=== PATIENT | male | born 1955 | race Caucasian/White ===

== ENCOUNTER 2024-09-28 15:09 | Inpatient (IN) | payer OTHER ==
[2024-09-28 17:26] LABS: BASO % 0.5 % (0-2.0); EOS % 1.3 % (0-4.5); HEMOGLOBIN 12.5 GM/dL (11.7-16.9); LYMPH % 13.6 % (8-40); MCH 27.8 pg (25.7-33.7); MCHC 32.9 g/dl (32.0-35.9); MEAN CELL VOLUME 84.5 fl (80-96); MEAN PLT VOLUME 6.9 fl (7.5-11.1); NEUT % 79.6 % (42.8-82.8); PLATELET COUNT 327 10^3/uL (134-434); WHITE BLOOD COUNT 13.8 K/mm3 (4.0-10.0)
[2024-09-28 17:34] LABS: INR 1.16 (0.83-1.09)
[2024-09-28 17:36] LABS: POTASSIUM 4.7 mmol/L (3.5-5.1)
[2024-09-28 17:37] LABS: ACTIVATED PTT 36.3 SECONDS (25.2-36.5)
[2024-09-28 17:38] LABS: CALCIUM 9.2 mg/dL (8.5-10.1)
[2024-09-28 17:39] LABS: ALBUMIN 3.2 g/dl (3.4-5.0); BLOOD UREA NITROGEN 13.7 mg/dL (7-18)
[2024-09-28 17:42] LABS: CREATININE 0.7 mg/dL (0.55-1.3)
[2024-09-28 17:43] LABS: BILIRUBIN,TOTAL 0.6 mg/dL (0.2-1)
[2024-09-28 17:44] LABS: TOT PROT 7.6 g/dl (6.4-8.2)
[2024-09-28] MEDS ORDERED: morphine SULFATE 4 MG/ML VIAL ONE (18:03)
[2024-09-28] MEDS: morphine SULFATE 4 MG/ML VIAL IVPUSH ONE (18:09)
[2024-09-28 19:02] LABS: ERYTHROCYTE SEDIMENTATION RATE 89 mm/hr (0-20)
[2024-09-28] MEDS ORDERED: DOCUSATE SODIUM 100 MG CAPSULE (FP) PO PRN (23:42)
[2024-09-28] MEDS ORDERED: ACETAMINOPHEN 1000 MG/100 ML BAG IVPB PRN (23:46)
[2024-09-29 01:22] VITALS: BMI 27.1
[2024-09-29] MEDS: INSULIN ASPART SLIDING SCALE (NOVOLOG) 1 VIAL SQ SCH (06:29)
[2024-09-29 08:38] LABS: BASO % 0.3 % (0-2.0); EOS % 2.2 % (0-4.5); HEMATOCRIT 36.2 % (35.4-49); HEMOGLOBIN 12.2 GM/dL (11.7-16.9); LYMPH % 17.3 % (8-40); MCH 28.2 pg (25.7-33.7); MCHC 33.8 g/dl (32.0-35.9); MEAN CELL VOLUME 83.4 fl (80-96); MEAN PLT VOLUME 6.7 fl (7.5-11.1); NEUT % 74.2 % (42.8-82.8); PLATELET COUNT 328 10^3/uL (134-434); RBC 4.34 M/mm3 (4.00-5.60); RDW 14.4 % (11.9-15.9); WHITE BLOOD COUNT 11.6 K/mm3 (4.0-10.0)
[2024-09-29 08:46] LABS: BLOOD UREA NITROGEN 12.4 mg/dL (7-18); CALCIUM 9.6 mg/dL (8.5-10.1)
[2024-09-29 08:47] LABS: MAGNESIUM 1.9 mg/dL (1.8-2.4)
[2024-09-29 08:50] LABS: CREATININE 0.6 mg/dL (0.55-1.3); PHOSPHOROUS 3.2 mg/dL (2.5-4.9)
[2024-09-29] MEDS: ATORVASTATIN CA 40 MG TABLET (FP) PO ONE (12:01)
[2024-09-29] MEDS: HEPARIN SOD,PORK IN 0.45% NACL 25,000 UNITS/500 ML INFUS.BAG IVPB SCH (13:01)
[2024-09-29] MEDS: HEPARIN NA (PORCINE) 5,000 UNITS/ML 1ML VIAL IVPUSH PRN (22:55)
[2024-09-30] MEDS: HEPARIN NA (PORCINE) 5,000 UNITS/ML 1ML VIAL IVPUSH PRN (06:17)
[2024-09-30] MEDS: traMADol HCL 50 MG TABLET PO PRN (15:55)
[2024-09-30] MEDS: LIDOCAINE HCL 5% TOP OINTMENT 50 GM TUBE TP ONE (21:48)
[2024-09-30] MEDS: ATORVASTATIN CA 40 MG TABLET (FP) PO SCH (21:49)
[2024-10-01 10:31] LABS: HEMATOCRIT 35.3 % (35.4-49); HEMOGLOBIN 11.7 GM/dL (11.7-16.9); MCH 28.1 pg (25.7-33.7); MCHC 33.1 g/dl (32.0-35.9); MEAN CELL VOLUME 84.9 fl (80-96); MEAN PLT VOLUME 7.3 fl (7.5-11.1); PLATELET COUNT 296 10^3/uL (134-434); RBC 4.16 M/mm3 (4.00-5.60); RDW 14.3 % (11.9-15.9); WHITE BLOOD COUNT 8.5 K/mm3 (4.0-10.0)
[2024-10-01] MEDS ORDERED: MIDAZOLAM HCL 2 MG/2 ML SINGLE DOSE VIAL ONE ×2 (16:16→18:16)
[2024-10-01] MEDS ORDERED: HEPARIN NA (PORCINE) 5,000 UNITS/ML 1ML VIAL ONE ×2 (16:16→17:03)
[2024-10-01] MEDS ORDERED: DEXMEDETOMIDINE HCL 200 MCG/2 ML IVPB ONE (17:55)
[2024-10-01] MEDS: ceFAZolin SODIUM 1 GM VIAL IVPB ONE (18:05)
[2024-10-01] MEDS ORDERED: METOCLOPRAMIDE HCL INJECTION 10 MG/2 ML VIAL ONE (18:07)
[2024-10-01] MEDS ORDERED: ONDANSETRON 4 MG/2 ML VIAL ONE (18:07)
[2024-10-01] MEDS: LIDOCAINE HCL 1%, 10 MG/ML (20ML VIAL) NR ONE (18:19)
[2024-10-01] MEDS ORDERED: PROTAMINE SULFATE 50 MG/5 ML VIAL ONE (18:39)
[2024-10-01] MEDS ORDERED: DOCUSATE SODIUM 100 MG CAPSULE (FP) PO PRN (18:55)
[2024-10-01] MEDS: LACTATED RINGERS SOLUTION 1,000 ML IV SCH (19:40)
[2024-10-01] MEDS: ENOXAPARIN NA (PORCINE) 100 MG/1 ML DISP.SYRIN SQ SCH (19:54)
[2024-10-01] MEDS: ATORVASTATIN CA 40 MG TABLET (FP) PO SCH (22:13)
[2024-10-01] MEDS: INSULIN ASPART SLIDING SCALE (NOVOLOG) 1 VIAL SQ SCH (22:13)
[2024-10-02] MEDS: traMADol HCL 50 MG TABLET PO PRN (04:29)
[2024-10-02 07:53] LABS: HEMATOCRIT 34.4 % (35.4-49); HEMOGLOBIN 11.6 GM/dL (11.7-16.9); MCH 28.3 pg (25.7-33.7); MCHC 33.8 g/dl (32.0-35.9); MEAN CELL VOLUME 83.9 fl (80-96); MEAN PLT VOLUME 6.9 fl (7.5-11.1); PLATELET COUNT 291 10^3/uL (134-434); RDW 14.5 % (11.9-15.9); WHITE BLOOD COUNT 9.9 K/mm3 (4.0-10.0)
[2024-10-02 08:10] LABS: CALCIUM 9.2 mg/dL (8.5-10.1)
[2024-10-02 08:11] LABS: BLOOD UREA NITROGEN 23.3 mg/dL (7-18)
[2024-10-02 08:14] LABS: CREATININE 0.9 mg/dL (0.55-1.3)
[2024-10-02 08:15] LABS: BILIRUBIN,TOTAL 0.6 mg/dL (0.2-1); TOT PROT 6.9 g/dl (6.4-8.2)
[2024-10-02] MEDS ORDERED: NICOTINE 21 MG/24 HOURS TOPICAL PATCH TD SCH (10:00)
[2024-10-02] MEDS: NICOTINE 21 MG/24 HOURS TOPICAL PATCH TD SCH (10:03)
[2024-10-02] MEDS: HYDROmorphone HCl 2 MG/ML VIAL IVPUSH ONE (13:16)
[2024-10-02 13:39] VITALS: BP 126/72; PULSE 86; RESP 20; TEMP 97.9
[2024-10-02] MEDS ORDERED: APIXABAN 5 MG TABLET PO SCH (22:00)
== END 2024-10-02 16:53 | disposition home or self-care (01) | DRG 254 ==
LOC: JER 15:09 → JERBED 21:01 → J7W 09-29 00:47 → OBSVTOIN 09-30 08:47
PROVIDERS: ADMIT Internal Medicine; ATTEND Family Medicine
PROC: B41DZZZ Fluoroscopy of Aorta and Bilateral Lower Extremity Arteries (ICD-10-PCS; 2024-10-01)
PROC: B40GYZZ Plain Radiography of Left Lower Extremity Arteries using Other Contrast (ICD-10-PCS; 2024-10-01)
PROC: 047D3DZ Dilation of Left Common Iliac Artery with Intraluminal Device, Percutaneous Approach (ICD-10-PCS; principal; 2024-10-01 17:30)
DX: E11.51 Type 2 diabetes mellitus with diabetic peripheral angiopathy without gangrene (principal); I10 Essential (primary) hypertension; E78.5 Hyperlipidemia, unspecified; E05.90 Thyrotoxicosis, unspecified without thyrotoxic crisis or storm; R91.8 Other nonspecific abnormal finding of lung field; J44.9 Chronic obstructive pulmonary disease, unspecified; R59.0 Localized enlarged lymph nodes; F17.210 Nicotine dependence, cigarettes, uncomplicated
CPT/HCPCS: 36415; 71250-TC; 73660-TC-LT-FY; 75635-TC; 76000-TC-FY; 80048; 80053; 80061; 82962; 83036; 83735; 84100; 84439; 84443; 85025; 85027; 85610; 85651; 85730; 86140; 86850; 86900; 86901; 93005; 93010; 93306-TC; 94760; 97116-GP; 97162-GP; 99285-25; C1760; C1874; G0378; J1644; Q9967

== ENCOUNTER 2025-04-25 22:11 | Inpatient (IN) | payer OTHER ==
[2025-04-25] MEDS ORDERED: ACETAMINOPHEN INJECTION 100 ML ONE (22:26)
[2025-04-25] MEDS: ACETAMINOPHEN 1000 MG/100 ML BAG IVPB ONE (23:01)
[2025-04-25] MEDS: LACTATED RINGERS SOLUTION 1000 ML INFUS.BAG IV ONE (23:02)
[2025-04-25 23:10] LABS: ABSOLUTE IMMATURE GRANULOCYTES 0.13 x10^3/uL (0.0-0.031); BASOPHILS # 0.06 x10^3/uL (0.01-0.08); EOSINOPHIL % 0.5 % (0.8-7.0); EOSINOPHILS # 0.09 x10^3/uL (0.04-0.54); HEMATOCRIT 33.5 % (40.1-51.0); HEMOGLOBIN 10.7 g/dL (13.7-17.5); MCHC 31.9 g/dl (32.3-36.5); MEAN CELL VOLUME 87.7 fl (79.0-92.2); MEAN PLT VOLUME 8.7 fl (9.4-12.4); MONOCYTE # 0.99 x10^3/uL (0.30-0.82); MONOCYTE % 5.3 % (5.3-12.2); PLATELET COUNT 251 x10^3/uL (163-337); RDW 13.6 % (12.2-16.6)
[2025-04-25 23:19] LABS: INR 1.26 (0.83-1.09); PROTHROMBIN TIME (PATIENT) 13.9 SEC (9.7-13.0)
[2025-04-25 23:22] LABS: ACTIVATED PTT 29.1 SECONDS (25.2-36.5)
[2025-04-25 23:27] LABS: VENOUS BASE EXCESS 0.6 mmol/L (-2-2); VENOUS O2 SATURATION 63.7 % (70-80); VENOUS PCO2 42.7 mmHg (38-52); VENOUS PH 7.397 (7.310-7.410)
[2025-04-25 23:31] LABS: POTASSIUM 3.8 mmol/L (3.5-5.1)
[2025-04-25 23:34] LABS: ALBUMIN 3.1 g/dl (3.4-5.0); BLOOD UREA NITROGEN 20.8 mg/dL (7-18); MAGNESIUM 1.4 mg/dL (1.8-2.4)
[2025-04-25 23:37] LABS: CREATININE 1.2 mg/dL (0.55-1.3)
[2025-04-25 23:39] LABS: BILIRUBIN,TOTAL 0.9 mg/dL (0.2-1); TOT PROT 7.2 g/dl (6.4-8.2)
[2025-04-26] MEDS ORDERED: MAGNESIUM SULFATE IN WATER 2 GM/50 ML IVPB IVPB ONE (00:43)
[2025-04-26] MEDS ORDERED: PIPERACILLIN/TAZOB 4.5 GM 4.5 GM/100 ML BAG IVPB ONE (00:43)
[2025-04-26] MEDS: MAGNESIUM SULFATE IN WATER 2 GM/50 ML IVPB IVPB ONE (01:02)
[2025-04-26] MEDS: PIPERACILLIN/TAZOB 4.5 GM 4.5 GM in DEXTROSE 5%-WATER 100 ML IVPB ONE (01:08)
[2025-04-26] MEDS ORDERED: DEXAMETHASONE SOD PHOSPHATE 10 MG/1 ML VIAL ONE (01:09)
[2025-04-26] MEDS: DEXAMETHASONE SOD PHOSPHATE 10 MG/1 ML VIAL IVPB ONE (01:14)
[2025-04-26] MEDS: VANCOMYCIN HCL 1,500 MG in DEXTROSE 5%-WATER - 500 ML IVPB ONE (01:35)
[2025-04-26] MEDS: VANCOMYCIN HCL IN 5 % DEXTROSE 1,500 MG/300 ML BAG IVPB ONE (02:20)
[2025-04-26 03:08] LABS: PH,URINE 5.5 (5.0-8.0); URINE APPEARANCE CLEAR; URINE BILIRUBIN NEGATIVE (NEGATIVE); URINE COLOR YELLOW; URINE GLUCOSE (UA) NEGATIVE (NEGATIVE); URINE KETONE NEGATIVE (NEGATIVE); URINE LEUK ESTERASE NEGATIVE (NEGATIVE); URINE NITRITE NEGATIVE (NEGATIVE); URINE PROTEIN TRACE (NEGATIVE); URINE UROBILINOGEN 0.2 mg/dL (0.2-1.0)
[2025-04-26] MEDS: DEXTROSE 5%-0.45% SALINE 1,000 ML IV SCH (06:35)
[2025-04-26] MEDS: INSULIN ASPART SLIDING SCALE (NOVOLOG) 1 VIAL SQ SCH (06:40)
[2025-04-26] MEDS: PIPERACILLIN/TAZOB 3.375 GM 3.375 GM in DEXTROSE 5%-WATER - 50 ML IVPB SCH ×2 (09:43→18:49)
[2025-04-26] MEDS: MUPIROCIN 2% TOPICAL OINTMENT FOR DECOLONIZATION NS SCH (09:43)
[2025-04-26] MEDS: NICOTINE 21 MG/24 HOURS TOPICAL PATCH TD SCH (11:33)
[2025-04-26] MEDS: CHLORHEXIDINE GLUCONATE 4% CLEANSER FOR DECOLONIZATION TP SCH (21:18)
[2025-04-27] MEDS: PIPERACILLIN/TAZOB 3.375 GM 3.375 GM in DEXTROSE 5%-WATER - 50 ML IVPB SCH (01:31)
[2025-04-27 06:56] LABS: ABSOLUTE IMMATURE GRANULOCYTES 0.11 x10^3/uL (0.0-0.031); BASOPHILS # 0.03 x10^3/uL (0.01-0.08); EOSINOPHIL % 0.4 % (0.8-7.0); EOSINOPHILS # 0.06 x10^3/uL (0.04-0.54); HEMATOCRIT 31.2 % (40.1-51.0); HEMOGLOBIN 9.9 g/dL (13.7-17.5); MCHC 31.7 g/dl (32.3-36.5); MEAN CELL VOLUME 86.9 fl (79.0-92.2); MONOCYTE # 0.91 x10^3/uL (0.30-0.82); MONOCYTE % 5.4 % (5.3-12.2); PLATELET COUNT 251 x10^3/uL (163-337); RDW 13.3 % (12.2-16.6)
[2025-04-27 07:00] LABS: POTASSIUM 3.9 mmol/L (3.5-5.1)
[2025-04-27 07:09] LABS: BILIRUBIN,TOTAL 0.5 mg/dL (0.2-1)
[2025-04-27 07:10] LABS: TOT PROT 6.7 g/dl (6.4-8.2)
[2025-04-27 07:11] LABS: ALBUMIN 2.7 g/dl (3.4-5.0)
[2025-04-27 07:12] LABS: BLOOD UREA NITROGEN 21.2 mg/dL (7-18); MAGNESIUM 1.8 mg/dL (1.8-2.4); PHOSPHOROUS 2.8 mg/dL (2.5-4.9)
[2025-04-27 07:13] LABS: CALCIUM 9.2 mg/dL (8.5-10.1)
[2025-04-27] MEDS: DEXAMETHASONE SOD PHOSPHATE 4 MG/1 ML VIAL IVPUSH SCH (09:51)
[2025-04-27] MEDS: TAMSULOSIN HCL 0.4 MG CAP PO SCH (09:51)
[2025-04-27] MEDS: ASPIRIN COATED 81 MG TABLET.EC PO SCH (09:51)
[2025-04-27 14:39] VITALS: BMI 30.1
[2025-04-27] MEDS: ATORVASTATIN CA 80 MG TABLET (FP) PO SCH (21:21)
[2025-04-28] MEDS: PIPERACILLIN/TAZOB 3.375 GM 3.375 GM in DEXTROSE 5%-WATER - 50 ML IVPB SCH (01:05)
[2025-04-28] MEDS: LEVOTHYROXINE NA 50 MCG TABLET (FP) PO SCH (06:03)
[2025-04-28] MEDS: INSULIN ASPART SLIDING SCALE (NOVOLOG) 1 VIAL SQ SCH (06:04)
[2025-04-28] MEDS ORDERED: LEVOTHYROXINE NA 50 MCG TABLET (FP) PO SCH (07:00)
[2025-04-28 07:58] LABS: ABSOLUTE IMMATURE GRANULOCYTES 0.06 x10^3/uL (0.0-0.031); BASOPHILS # 0.03 x10^3/uL (0.01-0.08); EOSINOPHILS # 0.11 x10^3/uL (0.04-0.54); HEMATOCRIT 33.2 % (40.1-51.0); HEMOGLOBIN 10.5 g/dL (13.7-17.5); MCHC 31.6 g/dl (32.3-36.5); MEAN CELL VOLUME 87.4 fl (79.0-92.2); MONOCYTE # 0.71 x10^3/uL (0.30-0.82); MONOCYTE % 6.1 % (5.3-12.2); PLATELET COUNT 299 x10^3/uL (163-337); RDW 13.3 % (12.2-16.6)
[2025-04-28 08:05] LABS: POTASSIUM 3.8 mmol/L (3.5-5.1)
[2025-04-28 08:45] LABS: ALBUMIN 2.8 g/dl (3.4-5.0); CALCIUM 9.5 mg/dL (8.5-10.1)
[2025-04-28 08:49] LABS: CREATININE 1.1 mg/dL (0.55-1.3)
[2025-04-28 08:50] LABS: BILIRUBIN,TOTAL 0.5 mg/dL (0.2-1)
[2025-04-28] MEDS: ASPIRIN COATED 81 MG TABLET.EC PO SCH (11:29)
[2025-04-28] MEDS: DEXAMETHASONE SOD PHOSPHATE 4 MG/1 ML VIAL IVPUSH SCH (11:29)
[2025-04-28] MEDS: TAMSULOSIN HCL 0.4 MG CAP PO SCH (11:48)
[2025-04-28] MEDS: NICOTINE 21 MG/24 HOURS TOPICAL PATCH TD SCH (11:48)
[2025-04-28] MEDS: ATORVASTATIN CA 80 MG TABLET (FP) PO SCH (21:13)
[2025-04-30 00:14] VITALS: RESP 18
[2025-04-30 06:16] VITALS: BP 130/86; PULSE 86; TEMP 97.6
== END 2025-04-30 10:06 | disposition home or self-care (01) | DRG 54 ==
LOC: JER 22:11 → JERBED 23:16 → JICU 04-26 05:42 → J4W 04-27 20:30
PROVIDERS: ADMIT Internal Medicine Pulmonary Disease; ATTEND Family Medicine
DX: C79.31 Secondary malignant neoplasm of brain (principal); G93.6 Cerebral edema; I10 Essential (primary) hypertension; E78.5 Hyperlipidemia, unspecified; E03.9 Hypothyroidism, unspecified; J44.9 Chronic obstructive pulmonary disease, unspecified; E11.51 Type 2 diabetes mellitus with diabetic peripheral angiopathy without gangrene; N40.0 Benign prostatic hyperplasia without lower urinary tract symptoms; E83.42 Hypomagnesemia; D64.9 Anemia, unspecified; F17.210 Nicotine dependence, cigarettes, uncomplicated
CPT/HCPCS: 0241U-QW; 36415; 70450-TC; 70553-TC; 71045-TC-FY; 72170-TC-FY; 80053; 81003; 82550; 82728; 82803; 82962; 83540; 83550; 83605; 83735; 84100; 84443; 84466; 84484; 85025; 85610; 85730; 86850; 86900; 86901; 87040; 87086; 93005; 93010; 97116-GP; 97161-GP; 99285-25; A9576; J1100

== ENCOUNTER 2025-06-29 14:27 | Inpatient (IN) | payer OTHER ==
[2025-06-29 15:10] LABS: MCHC 31.4 g/dl (32.3-36.5); MEAN CELL VOLUME 90.8 fl (79.0-92.2); MEAN PLT VOLUME 8.9 fl (9.4-12.4); RDW 15.8 % (12.2-16.6)
[2025-06-29 15:27] LABS: GLUCOSE,RANDOM 194.0 mg/dL (74-106); TOT PROT 6.1 g/dl (6.4-8.2)
[2025-06-29 15:28] LABS: CO2 23.0 mmol/L (21-32)
[2025-06-29 15:29] LABS: ALK PHOS 81.0 U/L (40-150)
[2025-06-29 15:32] LABS: CREATININE 1.05 mg/dL (0.55-1.3); SGOT/AST 26.0 U/L (5-34); SGPT/ALT 32.0 U/L (0-55)
[2025-06-29] MEDS: morphine CARPU-JECT 4 MG/1 ML DISP.SYRIN IVPUSH ONE (15:35)
[2025-06-29 15:53] LABS: HIV INTERPRETATION NEGATIVE (NEGATIVE)
[2025-06-29] MEDS ORDERED: morphine CARPU-JECT 4 MG/1 ML DISP.SYRIN IVPUSH ONE (15:53)
[2025-06-29] MEDS ORDERED: ACETAMINOPHEN INJECTION 100 ML ONE (16:27)
[2025-06-29] MEDS: ACETAMINOPHEN 1000 MG/100 ML BAG IVPB ONE (16:35)
[2025-06-29 16:57] LABS: HCV DIAGNOSTIC IN-HOUSE W/RFLX NON-REACTIVE (NONREACTIVE)
[2025-06-29] MEDS ORDERED: ACETAMINOPHEN 1000 MG/100 ML BAG IVPB PRN (22:11)
[2025-06-29] MEDS: morphine CARPU-JECT 2 MG/1 ML DISP.SYRIN IVPUSH PRN (22:49)
[2025-06-29 23:22] VITALS: RESP 18; BMI 31.7
[2025-06-30] MEDS: LEVOTHYROXINE NA 50 MCG TABLET (FP) PO SCH (06:16)
[2025-06-30] MEDS: DEXAMETHASONE SOD PHOSPHATE 10 MG/1 ML VIAL IVPUSH SCH ×2 (07:50→21:20)
[2025-06-30] MEDS: TAMSULOSIN HCL 0.4 MG CAP PO SCH (07:50)
[2025-06-30 08:08] LABS: ABSOLUTE IMMATURE GRANULOCYTES 0.09 x10^3/uL (0.0-0.031); BASOPHILS # 0.02 x10^3/uL (0.01-0.08); EOSINOPHIL % 0.6 % (0.8-7.0); EOSINOPHILS # 0.04 x10^3/uL (0.04-0.54); MCHC 31.9 g/dl (32.3-36.5); MEAN CELL VOLUME 89.4 fl (79.0-92.2); MEAN PLT VOLUME 9.0 fl (9.4-12.4); MONOCYTE # 0.43 x10^3/uL (0.30-0.82); MONOCYTE % 6.3 % (5.3-12.2); RDW 15.4 % (12.2-16.6)
[2025-06-30 08:53] LABS: GLUCOSE,RANDOM 143.0 mg/dL (74-106)
[2025-06-30 08:55] LABS: CO2 26.0 mmol/L (21-32)
[2025-06-30 08:59] LABS: CREATININE 0.78 mg/dL (0.55-1.3)
[2025-06-30] MEDS: ASPIRIN COATED 81 MG TABLET.EC PO SCH (09:15)
[2025-06-30] MEDS: NICOTINE 21 MG/24 HOURS TOPICAL PATCH TD SCH (11:15)
[2025-06-30] MEDS: fentaNYL 12mcg/hr PATCH.TD72 TD SCH (11:51)
[2025-06-30] MEDS: INSULIN ASPART SLIDING SCALE (NOVOLOG) 1 VIAL SQ SCH (12:00)
[2025-06-30] MEDS: LIDOCAINE 4% PATCH TP SCH (16:58)
[2025-06-30] MEDS: FENTANYL PATCH WASTE TD PRN (17:42)
[2025-06-30] MEDS: ACETAMINOPHEN 500 MG TABLET (FP) PO SCH (21:16)
[2025-06-30] MEDS: ATORVASTATIN CA 80 MG TABLET (FP) PO SCH (21:16)
[2025-06-30] MEDS: INSULIN GLARGINE (LANTUS) 100 UNITS/ML UNITS SQ SCH (21:17)
[2025-06-30] MEDS: CELECOXIB 200 MG CAPSULE PO SCH (21:17)
[2025-06-30] MEDS: LIDOCAINE PATCH REMOVAL MC SCH (21:21)
[2025-07-01 08:20] LABS: MCHC 31.3 g/dl (32.3-36.5); MEAN CELL VOLUME 89.5 fl (79.0-92.2); MEAN PLT VOLUME 9.1 fl (9.4-12.4); RDW 15.5 % (12.2-16.6)
[2025-07-01 08:51] LABS: GLUCOSE,RANDOM 273.0 mg/dL (74-106); TOT PROT 6.3 g/dl (6.4-8.2)
[2025-07-01 08:53] LABS: CO2 28.0 mmol/L (21-32)
[2025-07-01 08:54] LABS: ALK PHOS 84.0 U/L (40-150)
[2025-07-01 08:57] LABS: CREATININE 1.04 mg/dL (0.55-1.3); SGOT/AST 30.0 U/L (5-34); SGPT/ALT 33.0 U/L (0-55)
[2025-07-01] MEDS: PANTOPRAZOLE 20 MG TABLET PO SCH (15:21)
[2025-07-01] MEDS: APIXABAN 5 MG TABLET PO SCH (22:04)
[2025-07-02] MEDS ORDERED: INSULIN ASPART SLIDING SCALE (NOVOLOG) 1 VIAL SQ ONE (06:52)
[2025-07-02] MEDS ORDERED: INSULIN GLARGINE (LANTUS) 100 UNITS/ML UNITS SQ ONE (06:52)
[2025-07-02 08:34] LABS: MCHC 31.1 g/dl (32.3-36.5); MEAN CELL VOLUME 89.5 fl (79.0-92.2); MEAN PLT VOLUME 9.5 fl (9.4-12.4); RDW 15.4 % (12.2-16.6)
[2025-07-02 09:08] LABS: GLUCOSE,RANDOM 259.0 mg/dL (74-106); TOT PROT 6.1 g/dl (6.4-8.2)
[2025-07-02 09:09] LABS: CO2 24.0 mmol/L (21-32)
[2025-07-02 09:10] LABS: ALK PHOS 79.0 U/L (40-150)
[2025-07-02 09:13] LABS: CREATININE 0.88 mg/dL (0.55-1.3); SGOT/AST 21.0 U/L (5-34); SGPT/ALT 32.0 U/L (0-55)
[2025-07-03] MEDS: LIDOCAINE 4% PATCH TP ONE (02:11)
[2025-07-03 04:08] VITALS: BP 158/88; PULSE 88; TEMP 98
[2025-07-03] MEDS ORDERED: LIDOCAINE PATCH REMOVAL MC SCH (22:00)
== END 2025-07-03 03:00 | disposition short-term general hospital (02) | DRG 300 ==
LOC: JER 14:27 → SUATTDRO 14:27 → JERBED 17:52 → J6S 21:33
PROVIDERS: ADMIT Family Medicine; ATTEND Internal Medicine
DX: I74.5 Embolism and thrombosis of iliac artery (principal); C34.92 Malignant neoplasm of unspecified part of left bronchus or lung; C79.31 Secondary malignant neoplasm of brain; I70.0 Atherosclerosis of aorta; E03.9 Hypothyroidism, unspecified; I25.10 Atherosclerotic heart disease of native coronary artery without angina pectoris; M47.816 Spondylosis without myelopathy or radiculopathy, lumbar region; I10 Essential (primary) hypertension; E78.5 Hyperlipidemia, unspecified; J44.9 Chronic obstructive pulmonary disease, unspecified; E11.51 Type 2 diabetes mellitus with diabetic peripheral angiopathy without gangrene; I73.9 Peripheral vascular disease, unspecified; M47.9 Spondylosis, unspecified; R59.0 Localized enlarged lymph nodes; R26.2 Difficulty in walking, not elsewhere classified; N40.0 Benign prostatic hyperplasia without lower urinary tract symptoms; F17.210 Nicotine dependence, cigarettes, uncomplicated
CPT/HCPCS: 36415; 70450-TC; 71045-TC-FY; 71260-TC; 72131-TC; 72148-TC; 72192-TC; 73706-TC-RT; 74177-TC; 80048; 80053; 82962; 83036; 84484; 85025; 85027; 86803; 86850; 86900; 86901; 87389; 93005; 93010; 97116-GP; 97162-GP; 99285-25; J1100; Q9967

== ENCOUNTER 2025-08-04 15:05 | Inpatient (IN) | payer OTHER ==
[2025-08-04 16:19] LABS: INR 1.29 (0.83-1.09); PROTHROMBIN TIME (PATIENT) 14.2 SEC (9.7-13.0)
[2025-08-04 16:22] LABS: ACTIVATED PTT 32.7 SECONDS (25.2-36.5)
[2025-08-04 16:28] LABS: BG HCT 38.0 % (35.4-49); VENOUS BASE EXCESS 2.1 mmol/L (-2-2); VENOUS O2 SATURATION 22.4 % (70-80); VENOUS PCO2 61.6 mmHg (38-52); VENOUS PH 7.304 (7.310-7.410)
[2025-08-04 16:34] LABS: ABSOLUTE IMMATURE GRANULOCYTES 0.23 x10^3/uL (0.0-0.031); BASOPHILS # 0.07 x10^3/uL (0.01-0.08); EOSINOPHIL % 0.3 % (0.8-7.0); EOSINOPHILS # 0.05 x10^3/uL (0.04-0.54); MCHC 29.6 g/dl (32.3-36.5); MEAN CELL VOLUME 90.0 fl (79.0-92.2); MEAN PLT VOLUME 8.8 fl (9.4-12.4); MONOCYTE # 0.79 x10^3/uL (0.30-0.82); MONOCYTE % 5.2 % (5.3-12.2); RDW 15.5 % (12.2-16.6)
[2025-08-04] MEDS: SODIUM CHLORIDE 0.9% 500 ML INFUS.BAG IV ONE ×2 (16:48→18:30)
[2025-08-04] MEDS ORDERED: PIPERACILLIN/TAZOB 4.5 GM 4.5 GM/100 ML BAG IVPB ONE (17:45)
[2025-08-04] MEDS: PIPERACILLIN/TAZOB 4.5 GM 4.5 GM in DEXTROSE 5%-WATER 100 ML IVPB ONE (18:14)
[2025-08-04] MEDS: VANCOMYCIN 1,000 MG in DEXTROSE 5%-WATER - 250 ML IVPB ONE (18:15)
[2025-08-04] MEDS ORDERED: VANCOMYCIN 1 GM PREMIX (F) 1 GM/200 ML BAG ONE (18:18)
[2025-08-04] MEDS: NOREPINEPHRINE BITARTRATE 4,000 MCG in SODIUM CHLORIDE 496 ML IV SCH (19:50)
[2025-08-04 21:18] LABS: GLUCOSE,RANDOM 216.0 mg/dL (74-106); TOT PROT 6.8 g/dl (6.4-8.2)
[2025-08-04 21:19] LABS: CO2 27.0 mmol/L (21-32)
[2025-08-04 21:23] LABS: SGOT/AST 27.0 U/L (5-34); SGPT/ALT 14.0 U/L (0-55)
[2025-08-04 21:24] LABS: CREATININE 1.13 mg/dL (0.55-1.3)
[2025-08-04 21:29] LABS: EPI CELLS 14 /uL (0-25.1); HYALINE CASTS 1 /uL (0-3.1); URINE APPEARANCE CLEAR; URINE BACTERIA 1 /uL (0-1359); URINE BILIRUBIN NEGATIVE (NEGATIVE); URINE COLOR YELLOW; URINE GLUCOSE (UA) NEGATIVE (NEGATIVE); URINE KETONE NEGATIVE (NEGATIVE); URINE LEUK ESTERASE NEGATIVE (NEGATIVE); URINE NITRITE NEGATIVE (NEGATIVE); URINE PROTEIN NEGATIVE (NEGATIVE); URINE UROBILINOGEN 0.2 mg/dL (0.2-1.0); URINE WBC 11 /uL (0-25.8)
[2025-08-04 22:44] LABS: ALK PHOS 108.0 U/L (40-150)
[2025-08-05] MEDS: ACETAMINOPHEN 1000 MG/100 ML BAG IVPB PRN
[2025-08-05] MEDS: MUPIROCIN 2% TOPICAL OINTMENT FOR DECOLONIZATION NS SCH (03:35)
[2025-08-05] MEDS: PIPERACILLIN/TAZOB 4.5 GM 4.5 GM in DEXTROSE 5%-WATER 100 ML IVPB SCH ×3 (03:35→19:31)
[2025-08-05] MEDS: LEVOTHYROXINE NA 50 MCG TABLET (FP) PO SCH (06:57)
[2025-08-05 07:22] LABS: INR 1.22 (0.83-1.09); PROTHROMBIN TIME (PATIENT) 13.4 SEC (9.7-13.0)
[2025-08-05 07:24] LABS: ABSOLUTE IMMATURE GRANULOCYTES 0.13 x10^3/uL (0.0-0.031); BASOPHILS # 0.07 x10^3/uL (0.01-0.08); EOSINOPHIL % 1.5 % (0.8-7.0); EOSINOPHILS # 0.18 x10^3/uL (0.04-0.54); MCHC 30.1 g/dl (32.3-36.5); MEAN CELL VOLUME 89.3 fl (79.0-92.2); MEAN PLT VOLUME 8.8 fl (9.4-12.4); MONOCYTE # 0.63 x10^3/uL (0.30-0.82); MONOCYTE % 5.4 % (5.3-12.2); RDW 15.1 % (12.2-16.6)
[2025-08-05 07:24] LABS: ACTIVATED PTT 28.5 SECONDS (25.2-36.5)
[2025-08-05 07:44] LABS: GLUCOSE,RANDOM 88 mg/dL (74-106); TOT PROT 5.8 g/dl (6.4-8.2)
[2025-08-05 07:45] LABS: CO2 25 mmol/L (21-32)
[2025-08-05 07:49] LABS: SGOT/AST 21 U/L (5-34); SGPT/ALT 12 U/L (0-55)
[2025-08-05 07:50] LABS: CREATININE 0.87 mg/dL (0.55-1.3)
[2025-08-05 07:58] LABS: ALK PHOS 93 U/L (40-150)
[2025-08-05 07:59] LABS: N-TERMINAL BNP 361.2 pg/mL (0-299.9)
[2025-08-05] MEDS: FAMOTIDINE 20 MG/50 ML IVPB 20 MG/50 ML MG IVPB SCH (09:55)
[2025-08-05] MEDS: NICOTINE 21 MG/24 HOURS TOPICAL PATCH TD SCH (09:56)
[2025-08-05] MEDS: NAPH,MB-DB/K PH,MBDB POWDER PACKET PO ONE (09:56)
[2025-08-05] MEDS: POTASSIUM CHLORIDE ORAL LIQUID 20 MEQ/15 ML PO ONE (09:56)
[2025-08-05] MEDS: HEPARIN NA (PORCINE) 5,000 UNITS/ML 1ML VIAL SQ SCH (09:57)
[2025-08-05] MEDS ORDERED: SODIUM HYPOCHLORITE 0.5% 473 ML- BULK BOTTLE TP SCH (10:00)
[2025-08-05] MEDS: SODIUM HYPOCHLORITE 0.25%- 473 ML BULK BOTTLE TP SCH (11:00)
[2025-08-05] MEDS: SODIUM CHLORIDE 1,000 ML IV SCH (12:05)
[2025-08-05] MEDS: ENOXAPARIN NA (PORCINE) 100 MG/1 ML DISP.SYRIN SQ SCH (12:06)
[2025-08-05] MEDS: AMINO ACIDS/PROTEIN HYDROLYS 30 ML LIQUID.PKT PO SCH (18:12)
[2025-08-05] MEDS: CHLORHEXIDINE GLUCONATE 4% CLEANSER FOR DECOLONIZATION TP SCH (21:17)
[2025-08-05] MEDS: MELATONIN 5 MG TABLETS PO PRN (21:23)
[2025-08-05] MEDS: traZODone HCL 50 MG TABLET (FP) PO ONE (21:23)
[2025-08-05] MEDS: DEXMEDETOMIDINE PREMIX 400 MCG/100 ML BAG IVPB SCH (21:24)
[2025-08-05] MEDS ORDERED: traZODone HCL 50 MG TABLET (FP) PO SCH (22:00)
[2025-08-06] MEDS ORDERED: NOREPINEPHRINE BITARTRATE 4 MG/4 ML ML IV ONE (06:00)
[2025-08-06 07:09] LABS: ABSOLUTE IMMATURE GRANULOCYTES 0.13 x10^3/uL (0.0-0.031); BASOPHILS # 0.10 x10^3/uL (0.01-0.08); EOSINOPHIL % 1.5 % (0.8-7.0); EOSINOPHILS # 0.17 x10^3/uL (0.04-0.54); MCHC 30.6 g/dl (32.3-36.5); MEAN CELL VOLUME 88.9 fl (79.0-92.2); MEAN PLT VOLUME 8.6 fl (9.4-12.4); MONOCYTE # 0.66 x10^3/uL (0.30-0.82); MONOCYTE % 5.8 % (5.3-12.2); RDW 15.0 % (12.2-16.6)
[2025-08-06 07:30] LABS: GLUCOSE,RANDOM 205.0 mg/dL (74-106); TOT PROT 5.4 g/dl (6.4-8.2)
[2025-08-06 07:31] LABS: CO2 23.0 mmol/L (21-32)
[2025-08-06 07:35] LABS: SGOT/AST 19.0 U/L (5-34); SGPT/ALT 11.0 U/L (0-55)
[2025-08-06 07:36] LABS: CREATININE 0.8 mg/dL (0.55-1.3)
[2025-08-06 07:42] LABS: ALK PHOS 90.0 U/L (40-150)
[2025-08-06] MEDS: MULTIVITAMINS (DAILY MVI) TABLET (FP) PO SCH (10:06)
[2025-08-06] MEDS: ASCORBIC ACID 250 MG TABLET (FP) PO SCH (10:06)
[2025-08-06] MEDS ORDERED: ACETAMINOPHEN INJECTION 100 ML ONE (10:28)
[2025-08-06] MEDS: ACETAMINOPHEN 1000 MG/100 ML BAG IVPB PRN (10:58)
[2025-08-06] MEDS: LIDOCAINE 5% TOPICAL PATCH TP ONE (19:21)
[2025-08-06] MEDS: LIDOCAINE PATCH REMOVAL MC SCH (21:15)
[2025-08-07 07:30] LABS: ABSOLUTE IMMATURE GRANULOCYTES 0.13 x10^3/uL (0.0-0.031); BASOPHILS # 0.11 x10^3/uL (0.01-0.08); EOSINOPHIL % 1.6 % (0.8-7.0); EOSINOPHILS # 0.22 x10^3/uL (0.04-0.54); MCHC 30.2 g/dl (32.3-36.5); MEAN CELL VOLUME 88.7 fl (79.0-92.2); MEAN PLT VOLUME 8.5 fl (9.4-12.4); MONOCYTE # 0.85 x10^3/uL (0.30-0.82); MONOCYTE % 6.3 % (5.3-12.2); RDW 15.3 % (12.2-16.6)
[2025-08-07 07:48] LABS: GLUCOSE,RANDOM 199.0 mg/dL (74-106); TOT PROT 5.5 g/dl (6.4-8.2)
[2025-08-07 07:49] LABS: CO2 20.0 mmol/L (21-32)
[2025-08-07 07:53] LABS: SGOT/AST 15.0 U/L (5-34); SGPT/ALT 9.0 U/L (0-55)
[2025-08-07 07:54] LABS: CREATININE 0.74 mg/dL (0.55-1.3)
[2025-08-07 07:55] LABS: ALK PHOS 94.0 U/L (40-150)
[2025-08-07] MEDS ORDERED: ACETAMINOPHEN 1000 MG/100 ML BAG IVPB PRN (09:11)
[2025-08-07] MEDS: MAGNESIUM SULFATE IN WATER 2 GM/50 ML IVPB IVPB ONE (09:13)
[2025-08-07] MEDS: POTASSIUM PHOSPHATE 30 MM in DEXTROSE 5%-WATER - 250 ML IVPB ONE (09:14)
[2025-08-07] MEDS: POLYETHYLENE GLYCOL (HEALTHYLAX) 3350 17 GM PACKET PO SCH (09:37)
[2025-08-07] MEDS: morphine CARPU-JECT 2 MG/1 ML DISP.SYRIN IVPUSH PRN (09:40)
[2025-08-07] MEDS: MIDODRINE HCL 5 MG TABLET PO ONE (13:45)
[2025-08-07] MEDS: MIDODRINE HCL 5 MG TABLET PO SCH (14:44)
[2025-08-07 15:37] VITALS: BMI 26.6
[2025-08-07] MEDS: INSULIN ASPART SLIDING SCALE (NOVOLOG) 1 VIAL SQ SCH (16:25)
[2025-08-07] MEDS: SODIUM CHLORIDE 1,000 ML IV SCH (18:29)
[2025-08-07] MEDS: ATORVASTATIN CA 80 MG TABLET (FP) PO SCH (21:03)
[2025-08-08] MEDS: TAMSULOSIN HCL 0.4 MG CAP PO SCH (09:59)
[2025-08-08] MEDS: MEROPENEM 1 GM in DEXTROSE 5%-WATER 100 ML IVPB SCH ×2 (13:35→17:03)
[2025-08-08] MEDS: MIDODRINE HCL 5 MG TABLET PO ONE (17:01)
[2025-08-08] MEDS ORDERED: MEROPENEM 1 GM in DEXTROSE 5%-WATER 100 ML IVPB SCH (18:00)
[2025-08-08] MEDS: MIDODRINE HCL 5 MG TABLET PO SCH (21:38)
[2025-08-09 06:50] LABS: ABSOLUTE IMMATURE GRANULOCYTES 0.10 x10^3/uL (0.0-0.031); BASOPHILS # 0.03 x10^3/uL (0.01-0.08); EOSINOPHIL % 4.0 % (0.8-7.0); EOSINOPHILS # 0.37 x10^3/uL (0.04-0.54); MCHC 30.7 g/dl (32.3-36.5); MEAN CELL VOLUME 89.7 fl (79.0-92.2); MEAN PLT VOLUME 8.9 fl (9.4-12.4); MONOCYTE # 0.44 x10^3/uL (0.30-0.82); MONOCYTE % 4.8 % (5.3-12.2); RDW 15.5 % (12.2-16.6)
[2025-08-09 07:10] LABS: GLUCOSE,RANDOM 152.0 mg/dL (74-106); TOT PROT 5.4 g/dl (6.4-8.2)
[2025-08-09 07:11] LABS: CO2 19.0 mmol/L (21-32)
[2025-08-09 07:16] LABS: SGOT/AST 21.0 U/L (5-34); SGPT/ALT 11.0 U/L (0-55)
[2025-08-09 07:17] LABS: ALK PHOS 94.0 U/L (40-150); CREATININE 0.59 mg/dL (0.55-1.3)
[2025-08-09] MEDS ORDERED: MEROPENEM 1 GM VIAL (RESTRICTED TO ID) IVPB ONE (08:02)
[2025-08-09] MEDS: MAGNESIUM 2GM/50ML STERILE WATER IVPB IVPB ONE (08:07)
[2025-08-09] MEDS: MEROPENEM 1 GM in DEXTROSE 5%-WATER 100 ML IVPB SCH (09:02)
[2025-08-09] MEDS: POTASSIUM PHOSPHATE 30 MM in DEXTROSE 5%-WATER - 250 ML IVPB ONE (09:17)
[2025-08-09] MEDS: LIDOCAINE 5% TOPICAL PATCH TP ONE (12:13)
[2025-08-09] MEDS: NAPH,MB-DB/K PH,MBDB POWDER PACKET PO ONE (12:13)
[2025-08-09] MEDS: ACETAMINOPHEN 1000 MG/100 ML BAG IVPB PRN (12:32)
[2025-08-09] MEDS: LIDOCAINE PATCH REMOVAL MC ONE (14:55)
[2025-08-10 07:12] LABS: ABSOLUTE IMMATURE GRANULOCYTES 0.10 x10^3/uL (0.0-0.031); BASOPHILS # 0.03 x10^3/uL (0.01-0.08); EOSINOPHIL % 3.5 % (0.8-7.0); EOSINOPHILS # 0.40 x10^3/uL (0.04-0.54); MCHC 30.2 g/dl (32.3-36.5); MEAN CELL VOLUME 89.2 fl (79.0-92.2); MEAN PLT VOLUME 9.0 fl (9.4-12.4); MONOCYTE # 0.54 x10^3/uL (0.30-0.82); MONOCYTE % 4.7 % (5.3-12.2); RDW 15.8 % (12.2-16.6)
[2025-08-10 07:17] LABS: GLUCOSE,RANDOM 161.0 mg/dL (74-106); TOT PROT 5.3 g/dl (6.4-8.2)
[2025-08-10 07:18] LABS: CO2 20.0 mmol/L (21-32)
[2025-08-10 07:22] LABS: ALK PHOS 98.0 U/L (40-150); SGOT/AST 18.0 U/L (5-34); SGPT/ALT 9.0 U/L (0-55)
[2025-08-10 07:23] LABS: CREATININE 0.65 mg/dL (0.55-1.3)
[2025-08-10] MEDS ORDERED: ACETAMINOPHEN 1000 MG/100 ML BAG IVPB PRN (08:50)
[2025-08-10] MEDS ORDERED: SODIUM CHLORIDE 1,000 ML IV SCH (08:50)
[2025-08-10] MEDS: FAMOTIDINE 20 MG/50 ML IVPB 20 MG/50 ML MG IVPB SCH (10:29)
[2025-08-10] MEDS: MEROPENEM 1 GM in DEXTROSE 5%-WATER 100 ML IVPB SCH (10:29)
[2025-08-10] MEDS: ENOXAPARIN NA (PORCINE) 100 MG/1 ML DISP.SYRIN SQ SCH (10:29)
[2025-08-10] MEDS: MULTIVITAMINS (DAILY MVI) TABLET (FP) PO SCH (10:30)
[2025-08-10] MEDS: POLYETHYLENE GLYCOL (HEALTHYLAX) 3350 17 GM PACKET PO SCH (10:30)
[2025-08-10] MEDS: ASCORBIC ACID 250 MG TABLET (FP) PO SCH (10:30)
[2025-08-10] MEDS: SODIUM HYPOCHLORITE 0.25%- 473 ML BULK BOTTLE TP SCH (10:32)
[2025-08-10] MEDS: NICOTINE 21 MG/24 HOURS TOPICAL PATCH TD SCH (12:46)
[2025-08-10] MEDS: INSULIN ASPART SLIDING SCALE (NOVOLOG) 1 VIAL SQ SCH (13:34)
[2025-08-10] MEDS: MIDODRINE HCL 5 MG TABLET PO SCH (13:52)
[2025-08-10] MEDS: morphine CARPU-JECT 2 MG/1 ML DISP.SYRIN IVPUSH PRN (14:15)
[2025-08-10] MEDS: AMINO ACIDS/PROTEIN HYDROLYS 30 ML LIQUID.PKT PO SCH (17:33)
[2025-08-10] MEDS ORDERED: METOPROLOL TARTRATE 5 MG/5 ML VIAL ONE (20:12)
[2025-08-10] MEDS ORDERED: dilTIAZem HCL 125 MG/25 ML - 25 ML VIAL ONE (20:14)
[2025-08-10] MEDS: MAGNESIUM OXIDE 400 MG TABLET (FP) PO ONE (21:08)
[2025-08-10] MEDS: NAPH,MB-DB/K PH,MBDB POWDER PACKET PO SCH (21:09)
[2025-08-10] MEDS: ATORVASTATIN CA 80 MG TABLET (FP) PO SCH (21:09)
[2025-08-10] MEDS: CHLORHEXIDINE GLUCONATE 4% CLEANSER FOR DECOLONIZATION TP SCH (21:10)
[2025-08-10] MEDS: LIDOCAINE PATCH REMOVAL MC SCH (21:10)
[2025-08-10] MEDS: dilTIAZem HCL 50 MG/10 ML - 10 ML VIAL IVPUSH PRN (21:23)
[2025-08-10] MEDS ORDERED: VERAPAMIL HCL 5 MG/2 ML VIAL IVPUSH ONE (21:31)
[2025-08-10] MEDS: METOPROLOL TARTRATE 5 MG/5 ML VIAL IVPUSH ONE (21:54)
[2025-08-10 23:57] LABS: GLUCOSE,RANDOM 161.0 mg/dL (74-106); TOT PROT 5.5 g/dl (6.4-8.2)
[2025-08-10 23:58] LABS: CO2 19.0 mmol/L (21-32)
[2025-08-11 00:02] LABS: SGOT/AST 17.0 U/L (5-34); SGPT/ALT 7.0 U/L (0-55)
[2025-08-11 00:03] LABS: CREATININE 0.6 mg/dL (0.55-1.3)
[2025-08-11 00:31] LABS: ALK PHOS 100.0 U/L (40-150)
[2025-08-11] MEDS: NAPH,MB-DB/K PH,MBDB POWDER PACKET PO ONE (00:52)
[2025-08-11] MEDS: MAGNESIUM SULFATE IN WATER 2 GM/50 ML IVPB IVPB ONE (00:52)
[2025-08-11] MEDS: LEVOTHYROXINE NA 50 MCG TABLET (FP) PO SCH (06:00)
[2025-08-11] MEDS: TAMSULOSIN HCL 0.4 MG CAP PO SCH (10:03)
[2025-08-11 18:17] LABS: ABSOLUTE IMMATURE GRANULOCYTES 0.07 x10^3/uL (0.0-0.031); BASOPHILS # 0.03 x10^3/uL (0.01-0.08); EOSINOPHIL % 2.9 % (0.8-7.0); EOSINOPHILS # 0.30 x10^3/uL (0.04-0.54); MCHC 30.4 g/dl (32.3-36.5); MEAN CELL VOLUME 89.5 fl (79.0-92.2); MEAN PLT VOLUME 8.6 fl (9.4-12.4); MONOCYTE # 0.60 x10^3/uL (0.30-0.82); MONOCYTE % 5.8 % (5.3-12.2); RDW 15.9 % (12.2-16.6)
[2025-08-11 18:52] LABS: GLUCOSE,RANDOM 170.0 mg/dL (74-106)
[2025-08-11 18:53] LABS: TOT PROT 5.4 g/dl (6.4-8.2)
[2025-08-11 18:58] LABS: CREATININE 0.65 mg/dL (0.55-1.3); SGOT/AST 17.0 U/L (5-34); SGPT/ALT 7.0 U/L (0-55)
[2025-08-11 19:24] LABS: CO2 23.0 mmol/L (21-32)
[2025-08-11 19:48] LABS: ALK PHOS 97.0 U/L (40-150)
[2025-08-11] MEDS: MELATONIN 5 MG TABLETS PO PRN (21:57)
[2025-08-12 07:21] LABS: ABSOLUTE IMMATURE GRANULOCYTES 0.08 x10^3/uL (0.0-0.031); BASOPHILS # 0.05 x10^3/uL (0.01-0.08); EOSINOPHIL % 4.0 % (0.8-7.0); EOSINOPHILS # 0.41 x10^3/uL (0.04-0.54); MCHC 30.1 g/dl (32.3-36.5); MEAN CELL VOLUME 88.5 fl (79.0-92.2); MEAN PLT VOLUME 8.8 fl (9.4-12.4); MONOCYTE # 0.60 x10^3/uL (0.30-0.82); MONOCYTE % 5.8 % (5.3-12.2); RDW 16.0 % (12.2-16.6)
[2025-08-12 07:56] LABS: GLUCOSE,RANDOM 133.0 mg/dL (74-106); TOT PROT 5.4 g/dl (6.4-8.2)
[2025-08-12 07:57] LABS: CO2 22.0 mmol/L (21-32)
[2025-08-12 08:02] LABS: CREATININE 0.61 mg/dL (0.55-1.3); SGOT/AST 18.0 U/L (5-34); SGPT/ALT 7.0 U/L (0-55)
[2025-08-12 08:04] LABS: ALK PHOS 96.0 U/L (40-150)
[2025-08-13 06:37] LABS: ABSOLUTE IMMATURE GRANULOCYTES 0.06 x10^3/uL (0.0-0.031); BASOPHILS # 0.05 x10^3/uL (0.01-0.08); EOSINOPHIL % 3.0 % (0.8-7.0); EOSINOPHILS # 0.32 x10^3/uL (0.04-0.54); MCHC 29.1 g/dl (32.3-36.5); MEAN CELL VOLUME 90.8 fl (79.0-92.2); MEAN PLT VOLUME 9.0 fl (9.4-12.4); MONOCYTE # 0.64 x10^3/uL (0.30-0.82); MONOCYTE % 6.0 % (5.3-12.2); RDW 16.0 % (12.2-16.6)
[2025-08-13 07:31] LABS: GLUCOSE,RANDOM 147.0 mg/dL (74-106)
[2025-08-13 07:32] LABS: TOT PROT 5.3 g/dl (6.4-8.2)
[2025-08-13 07:33] LABS: CO2 21.0 mmol/L (21-32)
[2025-08-13 07:37] LABS: CREATININE 0.63 mg/dL (0.55-1.3); SGOT/AST 22.0 U/L (5-34); SGPT/ALT 8.0 U/L (0-55)
[2025-08-13 07:40] LABS: ALK PHOS 103.0 U/L (40-150)
[2025-08-13] MEDS ORDERED: morphine CARPU-JECT 2 MG/1 ML DISP.SYRIN ONE (16:57)
[2025-08-14] MEDS: LACTOBACILLUS ACIDOPHILUS 1 TABLET PO SCH (12:47)
[2025-08-15 07:16] LABS: GLUCOSE,RANDOM 160.0 mg/dL (74-106)
[2025-08-15 07:17] LABS: TOT PROT 6.2 g/dl (6.4-8.2)
[2025-08-15 07:18] LABS: CO2 20.0 mmol/L (21-32)
[2025-08-15 07:22] LABS: SGOT/AST 87.0 U/L (5-34); SGPT/ALT 29.0 U/L (0-55)
[2025-08-15 07:23] LABS: CREATININE 0.56 mg/dL (0.55-1.3)
[2025-08-15 07:26] LABS: ALK PHOS 117.0 U/L (40-150)
[2025-08-15 08:28] LABS: ABSOLUTE IMMATURE GRANULOCYTES 0.10 x10^3/uL (0.0-0.031); BASOPHILS # 0.04 x10^3/uL (0.01-0.08); EOSINOPHIL % 0.2 % (0.8-7.0); EOSINOPHILS # 0.03 x10^3/uL (0.04-0.54); MCHC 29.5 g/dl (32.3-36.5); MEAN CELL VOLUME 88.3 fl (79.0-92.2); MEAN PLT VOLUME 9.0 fl (9.4-12.4); MONOCYTE # 0.91 x10^3/uL (0.30-0.82); MONOCYTE % 5.5 % (5.3-12.2); RDW 15.9 % (12.2-16.6)
[2025-08-15] MEDS: FAMOTIDINE 20 MG TABLET PO SCH (10:18)
[2025-08-16] MEDS ORDERED: MELATONIN 5 MG TABLETS PO PRN (07:39)
[2025-08-16] MEDS ORDERED: dilTIAZem HCL 50 MG/10 ML - 10 ML VIAL IVPUSH PRN (07:39)
[2025-08-16] MEDS: NICOTINE 21 MG/24 HOURS TOPICAL PATCH TD SCH (11:18)
[2025-08-16] MEDS: TAMSULOSIN HCL 0.4 MG CAP PO SCH (11:19)
[2025-08-16] MEDS: AMINO ACIDS/PROTEIN HYDROLYS 30 ML LIQUID.PKT PO SCH (11:19)
[2025-08-16] MEDS: MULTIVITAMINS (DAILY MVI) TABLET (FP) PO SCH (11:19)
[2025-08-16] MEDS: ASCORBIC ACID 250 MG TABLET (FP) PO SCH (11:19)
[2025-08-16] MEDS: MEROPENEM 1 GM in DEXTROSE 5%-WATER 100 ML IVPB SCH (11:20)
[2025-08-16] MEDS: POLYETHYLENE GLYCOL (HEALTHYLAX) 3350 17 GM PACKET PO SCH (11:20)
[2025-08-16] MEDS: ENOXAPARIN NA (PORCINE) 100 MG/1 ML DISP.SYRIN SQ SCH (12:18)
[2025-08-16] MEDS: INSULIN ASPART SLIDING SCALE (NOVOLOG) 1 VIAL SQ SCH (13:19)
[2025-08-16] MEDS: DEXTROSE 5%-NORMAL SALINE 1,000 ML IV SCH (14:13)
[2025-08-16] MEDS: MIDODRINE HCL 5 MG TABLET PO SCH (14:44)
[2025-08-16] MEDS: NAPH,MB-DB/K PH,MBDB POWDER PACKET PO SCH (14:44)
[2025-08-16] MEDS: LIDOCAINE PATCH REMOVAL MC SCH (21:57)
[2025-08-16] MEDS: ATORVASTATIN CA 80 MG TABLET (FP) PO SCH (21:57)
[2025-08-16] MEDS ORDERED: CHLORHEXIDINE GLUCONATE 4% CLEANSER FOR DECOLONIZATION TP SCH (22:00)
[2025-08-17] MEDS: LEVOTHYROXINE NA 50 MCG TABLET (FP) PO SCH (06:23)
[2025-08-17] MEDS ORDERED: FENTANYL PATCH WASTE TD PRN (10:52)
[2025-08-17] MEDS: fentaNYL 25mcg/hr PATCH.TD72 TD SCH (12:45)
[2025-08-17] MEDS: AMOX TR/POT CLAV 875MG/125MG TABLETS (FP) PO SCH (17:48)
[2025-08-17 20:52] VITALS: BP 129/85; PULSE 80; RESP 20; TEMP 99.1
[2025-08-18] MEDS ORDERED: ERTAPENEM SODIUM 1 GM in SODIUM CHLORIDE 50 ML IVPB SCH (10:00)
== END 2025-08-17 23:45 | disposition short-term general hospital (02) | DRG 862 ==
LOC: JER 15:05 → JERBED 20:59 → JICU 23:22 → J2W 08-10 02:50 → J8W 08-16 01:35
PROVIDERS: ADMIT Internal Medicine Pulmonary Disease; ATTEND Nurse Practitioner Acute Care
DX: T81.49XA Infection following a procedure, other surgical site, initial encounter (principal); A41.9 Sepsis, unspecified organism; R65.21 Severe sepsis with septic shock; C79.31 Secondary malignant neoplasm of brain; C34.90 Malignant neoplasm of unspecified part of unspecified bronchus or lung; E44.0 Moderate protein-calorie malnutrition; I10 Essential (primary) hypertension; E78.5 Hyperlipidemia, unspecified; D64.9 Anemia, unspecified; I25.10 Atherosclerotic heart disease of native coronary artery without angina pectoris; J44.9 Chronic obstructive pulmonary disease, unspecified; E11.51 Type 2 diabetes mellitus with diabetic peripheral angiopathy without gangrene; E03.9 Hypothyroidism, unspecified; Y83.8 Other surgical procedures as the cause of abnormal reaction of the patient, or of later complication, without mention of misadventure at the time of the procedure; E83.42 Hypomagnesemia; E83.39 Other disorders of phosphorus metabolism
CPT/HCPCS: 11042; 11045; 36415; 71045-TC-FY; 74178-TC; 80053; 81003; 82308; 82550; 82803; 82962; 83036; 83605; 83735; 83880; 84100; 84436; 84443; 84484; 85025; 85610; 85730; 86850; 86900; 86901; 87040; 87070; 87077; 87086; 87205; 87637-QW; 93005; 93010; 93306-TC; 93926-TC; 97161-GP; 99285-25; Q9967